=== PATIENT | male | born 1985 | race Caucasian/White ===

== ENCOUNTER → 2023-09-18 14:17 | Outpatient (BNVA) | payer OTHER, SELFPAY | PROVIDERS: Visit Provider Physician Assistant Medical | DX: S39.012A Strain of muscle, fascia and tendon of lower back, initial encounter (principal); V49.10XA Passenger injured in collision with unspecified motor vehicles in nontraffic accident, initial encounter; M54.16 Radiculopathy, lumbar region | CPT/HCPCS: 99203 ==

== ENCOUNTER → 2023-09-22 13:46 | Outpatient (BNVA) | payer OTHER, SELFPAY | PROVIDERS: Visit Provider Physician Assistant Medical | DX: S39.012A Strain of muscle, fascia and tendon of lower back, initial encounter (principal); V49.10XA Passenger injured in collision with unspecified motor vehicles in nontraffic accident, initial encounter; M54.16 Radiculopathy, lumbar region | CPT/HCPCS: 99213 ==